=== PATIENT | male | born 1985 | race Caucasian/White ===

== ENCOUNTER 2018-08-21 07:36 | Emergency (ER) | payer SELFPAY ==
[~2018-08-21] VITALS: Ht 162.6 cm; Wt 83.7 kg
[2018-08-21 07:38] VITALS: BP 141/87; PULSE 82; RESP 19; Ht 162.6 cm; Wt 83.7 kg
[2018-08-21] MEDS ORDERED: CEPH-443 PO (07:53)
[2018-08-21] MEDS ORDERED: POLY10DR19 LEFT EYE (07:53)
[2018-08-21] MEDS ORDERED: NAPR-985 PO (07:53)
[2018-08-21] MEDS ORDERED: SULF1TAB31 PO (07:53)
[2018-08-21] MEDS ORDERED: CEFTRIAXONE 1 GM INJ IM ONE (08:00)
[2018-08-21] MEDS ORDERED: LIDOCAINE 1% (MPF) 5 ML VIAL INJ ONE (08:00)
--- NOTE | 2018-08-21 08:39 | ERD ---
ER Documentation Chief Complaint Chief Complaint BIB RA FOR EVAL OF LEFT EYE REDNESS SINCE SUNDAY HPI 32-year-old male presenting with erythema to the left eye. Patient states is been going on for the last 3 days. Denies any fevers. Has not taken any medications for symptoms. Has no pain with eye movement denies any visual changes. Has not use any medications or creams on the area. Has never had this before. Denies medical problems. NKDA. Surgical history denies. Social history denies ROS All systems reviewed and are negative except as per history of present illness. Medications Home Meds Active Scripts Naproxen* (Naprosyn*) 500 Mg Tablet, 500 MG PO BID PRN for PAIN AND/OR INFLAMMATION, #30 TAB Prov:ELENA COLVIN PA-C 08/21/18 Sulfamethoxazole/Trimethoprim* (Bactrim Ds* Tablet) 1 Each Tablet, 1 TAB PO BID, #14 TAB Prov:ELENA COLVIN PA-C 08/21/18 Cephalexin* (Keflex*) 500 Mg Capsule, 500 MG PO QID for 7 Days, CAP Prov:ELENA COLVIN PA-C 08/21/18 Polymyxin B Sulfate-TMP* (Polymyxin B-TMP Eye Drops*) 10 Ml Drops, 1 DROP LEFT EYE QID for 7 Days, EA Prov:ELENA COLVIN PA-C 08/21/18 Allergies Allergies: Coded Allergies: No Known Allergy (Unverified , 08/21/18) PMhx/Soc Medical and Surgical Hx: pt denies Medical Hx, pt denies Surgical Hx Hx Alcohol Use: No Hx Substance Use: No Hx Tobacco Use: No Smoking Status: Never smoker FmHx Family History: No diabetes, No coronary disease, No other Physical Exam Vitals Vital Signs Date Temp Pulse Resp B/P (MAP) Pulse Ox O2 O2 Flow FiO2 Time Delivery Rate 08/21/18 97.9 82 19 141/87 99 07:38 (105) Physical Exam GENERAL: The patient is well-appearing, well-nourished, in no acute distress HEENT: Atraumatic. Conjunctivae are pink. Pupils equal, round, and reactive to light. There is no scleral icterus. Tympanic membranes clear bilaterally. Oropharynx clear. No pain with ocular movements. No injection noted of the sclera. Swelling noted to the surrounding soft tissue of the left eye. NECK: C-spine is soft and supple. There is no meningismus. There is no cervical lymphadenopathy. CHEST: Clear to auscultation bilaterally. There are no rales, wheezes or rhonchi. HEART: Regular rate and rhythm. No murmurs, clicks, rubs or gallops. SKIN: Erythema to the left periorbital tissue of the left eye. Results 24 hrs Current Medications Medications Dose Sig/Jake Start Time Status Last (Trade) Ordered Route PRN Stop Time Admin Dose Reason Admin Ceftriaxone 1 gm ONCE ONCE 08/21/18 DC 08/21/18 Sodium IM 08:00 07:54 (Rocephin) 08/21/18 08:01 Lidocaine 5 ml ONCE ONCE 08/21/18 DC 08/21/18 (Xylocaine INJ 08:00 07:54 1% (Mpf)) 08/21/18 08:01 Procedures/MDM Course: Rocephin given the ER via IM route. MDM: 32-year-old male presenting with erythema of the soft tissue surrounding the left eye. I have low suspicion for orbital cellulitis. Patient has findings consistent with periorbital cellulitis will be discharged with antibiotics. Patient is told to apply warm compresses to the region and to return in 2 days for close follow-up. I do not feel blood work or imaging is indicated as patient does not have pain with ocular movement and I have low suspicion for deep tracking infection at this time. Patient is discharged stricter precautions. All questions answered at discharge Departure Diagnosis: Primary Impression: Periorbital cellulitis Condition: Stable Patient Instructions: Renetta-Orbital Cellulitis Referrals: [facility] YOU HAVE RECEIVED A MEDICAL SCREENING EXAM AND THE RESULTS INDICATE THAT YOU DO NOT HAVE A CONDITION THAT REQUIRES URGENT TREATMENT IN THE EMERGENCY DEPARTMENT. FURTHER EVALUATION AND TREATMENT OF YOUR CONDITION CAN WAIT UNTIL YOU ARE SEEN IN YOUR DOCTORS OFFICE WITHIN THE NEXT 1-2 DAYS. IT IS YOUR RESPONSIBILITY TO MAKE AN APPOINTMENT FOR FOLOW-UP CARE. IF YOU HAVE A PRIMARY DOCTOR --you should call your primary doctor and schedule an appointment IF YOU DO NOT HAVE A PRIMARY DOCTOR YOU CAN CALL OUR PHYSICIAN REFERRAL HOTLINE AT IF YOU CAN NOT AFFORD TO SEE A PHYSICIAN YOU CAN CHOSE FROM THE FOLLOWING [facility] [address] [facility] [address] [facility] [address] [facility] [address] [facility] [address] [facility]. [facility] [address] Additional Instructions: FOLLOW UP WITH YOUR PRIMARY CARE PHYSICIAN TOMORROW.Return to this facility if you are not improving as expected. ELENA COLVIN PA-C Aug 21, 2018 08:39
== END 2018-08-21 08:08 | disposition home or self-care (01) ==
LOC: FTE 07:36
DX: H05.012 Cellulitis of left orbit (principal)
CPT/HCPCS: 96372; 99284; J0696